=== PATIENT | female | born 1960 | race Caucasian/White ===

== ENCOUNTER → 2017-12-29 10:15 | Outpatient (CLI) | payer BC, SELFPAY ==
[2017-12-29 11:31] LABS: ALT 31 U/L (12-78); AST 30 U/L (15-37); Albumin 4.3 g/dL (3.4-5.0); Alkaline Phosphatase 98 U/L (46-116); Anion Gap 8.7 mmol/L (3-11); BUN 14 mg/dL (7-18); Bilirubin, Total 0.6 mg/dL (0.2-1.0); CO2 28.3 mmol/L (21.0-32.0); CREATININE 0.99 mg/dL (0.55-1.02); Chloride 105 mmol/L (98-107); Estimated GFR 58.24 (mL/min/1.73m2); Glucose 96 mg/dL (70-100); Potassium 3.6 mmol/L (3.5-5.1); Sodium 142 mmol/L (136-145); Total Protein 7.8 g/dL (6.4-8.2)
== END ==
PROVIDERS: PCP Nurse Practitioner Family; Visit Provider Nurse Practitioner Family
DX: E83.51 Hypocalcemia (principal); N28.9 Disorder of kidney and ureter, unspecified
CPT/HCPCS: 36415; 80053

== ENCOUNTER → 2018-01-19 01:10 | Outpatient (CLI) | payer BC, SELFPAY ==
--- NOTE | 2018-01-19 07:55 | DI.REPORT_ITS ---
SYMPTOM/DIAGNOSIS: SCREENING, Z12.31 MAMMOGRAM: 01/19 Mammograms were interpreted according to the usual protocol including computer analysis with CAD system, tomosynthesis and C view imaging. The breasts are heterogeneously dense. No dominant mass or clumped microcalcification identified in either breast. The current examination is compared with previous examinations including Jan 2016 and there has been no gross interval change in appearance in comparison with the previous studies. CONCLUSION: No specific evidence of malignancy at this time. Routine screening examinations are suggested at yearly intervals in this age group according to the ACS/ACR guidelines. Category 1, breast density category C. MQSA ASSESSMENT OF FINDINGS: Negative. Category 1. Patient will receive a letter notifying them of these results. Bi-RADS category C. The breasts are heterogeneously dense, which may obscure small masses.
== END ==
PROVIDERS: PCP Nurse Practitioner Family; Visit Provider Nurse Practitioner Family
DX: Z12.31 Encounter for screening mammogram for malignant neoplasm of breast (principal)
CPT/HCPCS: 77063; 77067

== ENCOUNTER 2018-04-27 08:34 | Outpatient (CLI) | payer BC, SELFPAY ==
[2018-04-27 10:04] LABS: Anion Gap 11.1 mmol/L (3-11); BUN 18 mg/dL (7-18); CO2 25.9 mmol/L (21.0-32.0); CREATININE 1.08 mg/dL (0.55-1.02); Chloride 106 mmol/L (98-107); Estimated GFR 52.67 (mL/min/1.73m2); Glucose 102 mg/dL (70-100); Potassium 3.8 mmol/L (3.5-5.1); Sodium 143 mmol/L (136-145)
== END 2018-04-27 08:54 ==
PROVIDERS: PCP Nurse Practitioner Family; Visit Provider Nurse Practitioner Family
DX: E83.51 Hypocalcemia (principal); N28.9 Disorder of kidney and ureter, unspecified
CPT/HCPCS: 36415; 80048

== ENCOUNTER 2018-07-20 00:31 | Outpatient (CLI) | payer OTHER, SELFPAY ==
--- NOTE | 2018-07-20 08:31 | DI.US_ITS ---
SYMPTOM/DIAGNOSIS: PERSISTENT RENAL INSUFFICIENCY, N28.9, DISORDER OF KIDNEY RENAL ULTRASOUND: The kidneys are normal in size and shape and there is no evidence of a renal mass or hydronephrosis. There is a 5 mm. focus of high echogenicity in the mid pole of the left kidney raising the possibility of non obstructing renal calculus. No hydronephrosis identified. Urinary bladder is unremarkable in appearance with pre and post void urinary bladder volume measurements of 192 cc's and 0 cc's respectively. Both ureteral jets were visualized. CONCLUSION: Small non obstructing left renal calculus. Examination is otherwise within normal limits.
== END 2018-07-20 00:51 ==
PROVIDERS: PCP Nurse Practitioner Family; Visit Provider Nurse Practitioner Family
DX: N28.9 Disorder of kidney and ureter, unspecified (principal); N20.0 Calculus of kidney
CPT/HCPCS: 76770

== ENCOUNTER 2018-10-17 07:04 | Outpatient (CLI) | payer OTHER, SELFPAY ==
[2018-10-17 07:44] LABS: Bilirubin Negative (Negative); Blood Negative (Negative); Clarity Sl Cloudy; Glucose Negative (Negative); Ketones Trace mg/dL (Negative); Leukocyte Esterase Negative (Negative); Nitrite Negative (Negative); Specific Gravity 1.025 (1.005-1.025); Urobilinogen 0.2 EU/dL (Up TO 0.2); pH 6.5 (5-8)
[2018-10-17 08:04] LABS: COMMENT (LAB VIEW ONLY) 203.15 mg/dL; Microalb ug/mg Crea 2.7 ug/mg Cr
== END 2018-10-17 07:24 ==
PROVIDERS: PCP Nurse Practitioner Family; Visit Provider Nurse Practitioner Family
DX: N28.9 Disorder of kidney and ureter, unspecified (principal)
CPT/HCPCS: 81003; 82043; 82570

== ENCOUNTER 2019-01-01 01:29 | Outpatient (CLI) | payer OTHER, SELFPAY ==
[2019-01-01 07:26] LABS: HCT 43.9 % (36.0-46.0); HGB 14.4 g/dL (12.0-15.5); Mean Corp. HGB Concentration 32.8 g/dL (32.0-36.0); Mean Corpuscular Hemoglobin 30.2 pg (27.0-33.0); Mean Platelet Volume 10.1 fL (8.0-11.0); Platelet Count 192 x1000/uL (130-400); RBC 4.77 m/cumm (4.00-5.20); White Blood Cell Count 4.28 k/cumm (4.4-10.8)
[2019-01-01 08:10] LABS: ALT 27 U/L (12-78); AST 25 U/L (15-37); Alkaline Phosphatase 86 U/L (46-116); Anion Gap 9.6 mmol/L (3-11); BUN 17 mg/dL (7-18); Bilirubin, Total 0.5 mg/dL (0.2-1.0); CO2 27.4 mmol/L (21.0-32.0); CREATININE 1.05 mg/dL (0.55-1.02); Calcium 8.9 mg/dL (8.5-10.1); Calculated LDL 113 mg/dL; Chloride 105 mmol/L (98-107); Cholesterol 197 mg/dL (50-200); Estimated GFR 54.21 (mL/min/1.73m2); Glucose 105 mg/dL (70-100); HDL Cholesterol 64 mg/dL (40-60); Potassium 3.9 mmol/L (3.5-5.1); Sodium 142 mmol/L (136-145); Total Protein 7.3 g/dL (6.4-8.2); Triglyceride 104 mg/dL (30-150)
== END 2019-01-01 01:49 ==
PROVIDERS: PCP Nurse Practitioner Family; Visit Provider Nurse Practitioner Family
DX: N28.9 Disorder of kidney and ureter, unspecified (principal); E78.5 Hyperlipidemia, unspecified; Z51.81 Encounter for therapeutic drug level monitoring
CPT/HCPCS: 36415; 80053; 80061; 83721; 85027

== ENCOUNTER 2019-03-15 01:35 | Outpatient (CLI) | payer OTHER, SELFPAY ==
--- NOTE | 2019-03-15 15:34 | DI.MAMMO_ITS ---
EXAM: MAMMO SCREENING CLINICAL HISTORY: screening, Z12.31 TECHNIQUE: Mammograms were interpreted according to the usual protocol including computer analysis w ith CAD system, tomosynthesis and C-view imaging. COMPARISON: [id number] FINDINGS: The breasts are composed of heterogeneously dense tissue, Breast Density category C. No suspicious m asses or suspicious microcalcifications are seen. No skin thickening or abnormal axillary lymph node s are seen. There has been no significant change from prior exams. IMPRESSION: Category 1, negative mammogram. Yearly screening mammography is recommended.
== END 2019-03-15 01:55 ==
PROVIDERS: PCP Nurse Practitioner Family; Visit Provider Nurse Practitioner Family
DX: Z12.31 Encounter for screening mammogram for malignant neoplasm of breast (principal)
CPT/HCPCS: 77063; 77067

== ENCOUNTER 2020-01-28 04:52 | Outpatient (CLI) | payer BC, SELFPAY ==
[2020-01-28 07:37] LABS: HCT 44.1 % (36.0-46.0); HGB 13.9 g/dL (11.2-15.7); MCH 29.4 pg (27.0-33.0); MCHC 31.5 % (32.0-36.0); MCV 93.4 fL (80-95); MPV 10.3 fL (8.0-11.0); Platelet Count 225 10^3/uL (130-400); RBC 4.72 10^6/uL (3.93-5.22); RDW 12.7 % (11.7-14.6); RDW-SD 43.6 fL
[2020-01-28 08:12] LABS: ALT 33 U/L (14-59); AST 25 U/L (15-37); Albumin 4.4 g/dL (3.4-5.0); Alkaline Phosphatase 88 U/L (46-116); BUN 20 mg/dL (7-18); Bilirubin, Total 0.5 mg/dL (0.2-1.0); CREATININE 1.06 mg/dL (0.55-1.02); Calcium 9.1 mg/dL (8.5-10.1); Calculated LDL 99 mg/dL (<100); Chloride 108 mmol/L (98-107); Cholesterol 179 mg/dL (<200); Estimated GFR 53.43 (mL/min/1.73m2); Glucose 105 mg/dL (74-106); HDL Cholesterol 61 mg/dL (40-60); Potassium 4.2 mmol/L (3.5-5.1); Sodium 143 mmol/L (136-145); Total Protein 7.7 g/dL (6.4-8.2); Triglyceride 99 mg/dL (<150)
== END 2020-01-28 05:12 ==
PROVIDERS: PCP Nurse Practitioner Family; Visit Provider Nurse Practitioner Family
DX: E78.5 Hyperlipidemia, unspecified (principal); R73.01 Impaired fasting glucose; N18.3 Chronic kidney disease, stage 3 (moderate); Z51.81 Encounter for therapeutic drug level monitoring
CPT/HCPCS: 36415; 80053; 80061; 85027

== ENCOUNTER 2020-04-13 08:36 | Outpatient (CLI) | payer BC, SELFPAY ==
[2020-04-15 17:08] LABS: SARS-CoV-2 RNA Not Detected (NotDetected); SARS-CoV-2 RNA Source Nasal/Nares
== END 2020-04-13 08:56 ==
PROVIDERS: PCP Nurse Practitioner Family; Visit Provider Nurse Practitioner Family
DX: J02.9 Acute pharyngitis, unspecified (principal)
CPT/HCPCS: U0003